=== PATIENT | female | born 1970 | race Caucasian/White ===

== ENCOUNTER → 2024-06-07 14:23 | Outpatient (REF) | payer BC, SELFPAY | LOC: WDC 14:23 | PROVIDERS: ATTENDING PHYSICIAN Family Medicine | DX: Z12.31 Encounter for screening mammogram for malignant neoplasm of breast (principal) | CPT/HCPCS: 77063; 77067 ==

== ENCOUNTER → 2024-06-29 06:30 | Outpatient (REF) | payer BC, SELFPAY ==
[2024-06-29 08:53] LABS: % Basophils 1.5 % (0-2); % Eosinophils 6.3 % (0-6); % Immature Granulocytes 0.2 % (0-0.5); % Monocytes 7.4 % (1.7-9.3); % Neutrophils 54.6 % (42.2-75.2); Absolute Basophils 0.1 10^3/uL (0-0.2); Absolute Eosinophils 0.3 10^3/uL (0-0.7); Absolute Lymphocytes 1.6 10^3/uL (1.2-3.4); Absolute Monocytes 0.4 10^3/uL (0.1-0.6); Absolute Neutrophils 2.9 10^3/uL (1.4-6.5); Hematocrit 40.4 % (37.0-47.0); Hemoglobin 13.8 g/dL (12.0-16.0); Mean Corp Hgb Conc. 34.2 g/dL (33.0-37.0); Mean Corpuscular Hgb 29.4 pg (27.0-31.0); Nucleated Red Blood Cells % 0 %; Platelet Count 311 10^3/uL (130-400); Red Cell Dist. Width 12.2 % (11.5-14.5); White Blood Cell Count 5.3 10^3/uL (4.8-10.8)
[2024-06-29 08:59] LABS: Urine Albumin Negative (Neg - Trace); Urine Bilirubin Negative (Negative); Urine Character Clear (Clear); Urine Color Yellow; Urine Glucose Negative (Negative); Urine Ketone Negative (Negative); Urine Leukocyte Negative (Negative); Urine Nitrite Negative (Negative); Urine Occult Blood Negative (Negative); Urine Urobilinogen Negative (Neg - 1+)
[2024-06-29 09:18] LABS: ALT (SGPT) 28 U/L (0-35); AST (SGOT) 35 U/L (14-36); Albumin 4.6 g/dl (3.5-5.0); Alkaline Phosphatase 62 U/L (38-126); Blood Urea Nitrogen 16 mg/dl (7-17); Calcium 9.8 mg/dl (8.4-10.2); Carbon Dioxide 25 mmol/L (22-30); Chloride 102 mmol/L (98-107); Glucose 105 mg/dl (70-99); HDL Cholesterol 89 mg/dl; LDL Cholesterol, Calculated 106 mg/dl; Potassium 4.7 mmol/L (3.5-5.1); Sodium 140 mmol/L (135-145); Total Bilirubin 1.6 mg/dl (0.2-1.3); Total Cholesterol 209 mg/dl (50-199); Total Protein 7.2 g/dl (6.3-8.2); Triglyceride 70 mg/dl (10-149); Very Low Density Lipoprotein 14 mg/dl (0-30); eGFR > 60.00
[2024-06-29 09:34] LABS: Free T4 1.16 ng/dl (0.78-2.19); Glycohemoglobin (HgbA1c) 5.4 % (4.0-5.6)
[2024-06-29 09:52] LABS: Free T3 3.39 pg/ml (2.77-5.27)
== END ==
LOC: SDSPAT 06:30
PROVIDERS: ATTENDING PHYSICIAN Family Medicine
DX: Z00.00 Encounter for general adult medical examination without abnormal findings (principal); E03.9 Hypothyroidism, unspecified
CPT/HCPCS: 80053; 80061; 81003; 83036; 84439; 84443; 84481; 85025

== ENCOUNTER → 2024-11-08 06:40 | Outpatient (REF) | payer BC, SELFPAY ==
[2024-11-08 11:01] LABS: Urine Albumin Negative (Neg - Trace); Urine Bilirubin Negative (Negative); Urine Character Clear (Clear); Urine Color Yellow; Urine Glucose Negative (Negative); Urine Ketone Negative (Negative); Urine Leukocyte 1+ (Negative); Urine Nitrite Negative (Negative); Urine Occult Blood Negative (Negative); Urine Urobilinogen Negative (Neg - 1+)
[2024-11-08 11:23] LABS: Urine Bacteria Many (Negative); Urine Red Blood Cell 0-2 /HPF (0-2); Urine Squamous Cell >30 /LPF (Few); Urine White Cell 0-2 /HPF (0-5)
== END ==
LOC: SDSPAT 06:40
PROVIDERS: ATTENDING PHYSICIAN Physician Assistant
DX: R30.0 Dysuria (principal)
CPT/HCPCS: 36415; 81003; 81015; 87086

== ENCOUNTER → 2024-11-15 14:54 | Outpatient (REF) | payer BC, SELFPAY | LOC: RAD 14:54 | PROVIDERS: ATTENDING PHYSICIAN Nurse Practitioner Family | DX: R10.2 Pelvic and perineal pain (principal) | CPT/HCPCS: 74176 ==

== ENCOUNTER 2025-02-20 15:41 | Emergency (ER) | payer BC, SELFPAY ==
[2025-02-20 15:45] VITALS: BP 145/99
--- NOTE | 2025-02-20 17:26 | ED.GENMED ---
Addendum entered and electronically signed by Pedro Zamorano MD 02/20/25 20:14:
Note was erroneously signed prior to completion
MRI reviewed which showed L5-S1 disc extrusion with nerve root impingement in the lateral recess but no signs to suggest cauda equina or cord injury. This finding is consistent with her clinical exam and symptoms. Will plan to start on course of
steroids, will plan for discharge and patient can follow-up as an outpatient with orthopedist. Patient comfortable with this plan. All questions answered.
Original Note:
History of Present Illness
General
Chief Complaint: Numbness
Source: patient
Exam Limitations: none
Time Seen by Provider: 02/20/25 16:44
Nursing documentation reviewed up to this point in time: agreed with
History of Present Illness
History of Present Illness:
55-year-old female with history as noted presents for evaluation of right leg weakness and numbness, new fecal incontinence. Patient reports that she had a fall with back injury in September. She had subsequent imaging that showed some bulging
disks in the lumbar region. She says that about 3 weeks ago she aggravated her back pain while she was lifting a grandchild and since then has been having pain across her lower back as well as severe radicular symptoms. She says she has shooting
pains down the right buttock and all the way down the right leg. She describes shooting/stabbing pains in the right leg. She has associated numbness in the leg particularly in the calf and heel. She also reports weakness particular on
dorsiflexion of the foot. She denies any symptoms in the left lower extremity. She has not had any incontinence of urine but says that yesterday she had an episode of fecal incontinence. She does describe some saddle anesthesia/difficulty with
sensation of defecation. She discussed the symptoms with her primary care doctor who sent her in to be evaluated for possible cauda equina syndrome.
Past History
Past History
ED Past Medical History: Other (Irritable bowel syndrome)
ED Past Surgical History: Cholecystectomy, Gynecological and Other (Mandible surgery)
Social History
Tobacco: Former smoker
Review of Systems
Review of Systems
All Other Systems: ROS reviewed and negative except as documented in HPI and ROS
Constitutional: Denies fever
Respiratory: Denies trouble breathing
Cardiac: Denies chest pain
ABD/GI: Denies abdominal pain
: Denies incontinence (Denies urinary incontinence) or difficulty voiding
Musculoskeletal: Reports back pain
Neurological: Denies headache
Phy Exam
Physical Exam
Physical Exam:
General: Awake, alert; no acute distress
Head: Normocephalic, atraumatic
Eyes: Conjunctiva normal
Throat: Airway intact, handling secretions
Neck: Trachea midline, supple without meningismus
Lungs: Breathing comfortably no distress
Heart: Regular rate
Back: No midline tenderness of thoracic or lumbar region and no point tenderness paraspinally
Rectal: Good rectal tone; she does report some diminished sensation in the perianal region
Neuro: Cranial nerves grossly intact, speech fluid; subjective diminished sensation posterior right calf as well as the right heel; some very slight weakness on dorsiflexion of the right foot when compared to the left but good proximal strength and
good strength on extension of the knee
Skin: no rash
Extremities: Warm and well-perfused with good pulses
Scores
Heart Failure Risk
Heart Failure Risk Score: Not Applicable
Heart Score for Chest Pain Patients
STEMI patient?: Not applicable
Withdrawal Assessment of Alcohol
Withdrawal Assessment Completed?: Not applicable
Course
Orders/Labs/Results
Orders:
Orders
02/20/25 17:02
Bladder Scan- Treatment ONCE
02/20/25 17:24
MR Lumbar Without Contrast Urgent
Comment:
Reason For Exam: back pain, right leg weakness/numb, incontinence
Recent pill cam endoscopy?: No
Vital Signs
Initial and Last Documented VS:
Initial Vital Signs
Temp Pulse Resp BP Pulse Ox
36.7 C 63 16 145/99 100
02/20/25 15:45 02/20/25 15:45 02/20/25 15:45 02/20/25 15:45 02/20/25 15:45
Last Documented Vital Signs
Temp Pulse Resp BP Pulse Ox
36.7 C 68 20 145/99 100
02/20/25 15:45 02/20/25 17:17 02/20/25 17:17 02/20/25 15:45 02/20/25 17:17
MDM/Problems Addressed
Differential Diagnosis Includes:
Disc herniation/bulging disc, DJD--likely sciatica but must rule out cauda equina syndrome
MDM/Problems Addressed:
55-year-old female presents for evaluation of low back pain with radicular symptoms; she is also reporting some saddle anesthesia and new fecal incontinence. Vitals and exam as above�notably objectively has good rectal tone. She had no urinary
retention on bladder scan. I suspect this is likely low back pain with sciatica likely from bulging disc that was previously seen on imaging however given constellation of symptoms I do think she must be evaluated for cauda equina syndrome.
Discussed with radiologist we will proceed with MRI of the lumbar region. Reassess after the above.
*Radiology
Radiology exam reviewed: radiology read reviewed
*Pulse Oximetry
Patient hypoxic: no
*Critical Care Note
Total Time (30-74mins, 75-104mins- exclusive of procedures): Not Applicable
Data Reviewed
Source: patient, records and physician (Physician called ahead to refer patient to the ER)
Patient Management
Discussion with other providers: Radiologist (Discussed with radiologist)
ED Attending Note
-
Portions of this chart may have been created with voice recognition software.� Occasional wrong word or��sound alike� substitutions may have occurred due to the inherent limitations of voice recognition software.
Discharge Plan
Departure
Prescriptions:
No Action
levothyroxine 88 MCG tablet
88 mcg PO DAILY
esomeprazole magnesium [Nexium] 40 MG capsule,delayed release(DR/EC)
40 mg PO DAILY
loratadine [Allergy Relief (loratadine)] 10 MG tablet
20 mg PO DAILY
cholecalciferol (vitamin D3) [Vitamin D3] 400 UNIT capsule
400 unit PO DAILY
sucralfate [Carafate] 1 GM tablet
1 gm PO BID Qty: 20 0RF
Referrals:
Isabela Laura CRNP [Family Provider] -
Interventions
Interventions:
*Risk Screen - Suicide Last Done: 02/20/25 17:17
*General Assessment Last Done: 02/20/25 17:17
*Neglect/Abuse Screening Last Done: 02/20/25 17:17
*ED- Fall Risk Assessment Last Done: 02/20/25 17:17
ED- Neurological Assessment Last Done: 02/20/25 17:17
Discharge Date and Time
Print Language: CROATIAN
[2025-02-20 17:38] VITALS: BP 116/85
[2025-02-20 18:00] VITALS: BP 108/91
[2025-02-20 18:10] VITALS: BP 108/91
[2025-02-20 19:47] VITALS: BP 137/121
[2025-02-20 20:00] VITALS: BP 119/79
== END 2025-02-20 20:30 | disposition home or self-care (01) ==
LOC: EMR 15:41
PROVIDERS: EMERGENCY PHYSICIAN Emergency Medicine; FAMILY PHYSICIAN Nurse Practitioner Family
DX: M51.27 Other intervertebral disc displacement, lumbosacral region (principal); M54.17 Radiculopathy, lumbosacral region; Z90.49 Acquired absence of other specified parts of digestive tract; Z87.891 Personal history of nicotine dependence
CPT/HCPCS: 99284; 72148

== ENCOUNTER 2025-02-21 10:13 | Outpatient (RCR) | payer BC, SELFPAY | END 2025-02-21 23:59 | disposition home or self-care (01) | LOC: RPT 10:13 | PROVIDERS: ATTENDING PHYSICIAN Nurse Practitioner Family | DX: M54.41 Lumbago with sciatica, right side (principal); Z73.6 Limitation of activities due to disability; M62.81 Muscle weakness (generalized); R20.0 Anesthesia of skin; M79.604 Pain in right leg; M51.27 Other intervertebral disc displacement, lumbosacral region; X58.XXXD Exposure to other specified factors, subsequent encounter | CPT/HCPCS: 97110; 97140; 97162 ==

== ENCOUNTER → 2025-03-08 12:08 | Outpatient (REF) | payer BC, SELFPAY | LOC: MRI 3T 12:08 | PROVIDERS: ATTENDING PHYSICIAN Orthopaedic Surgery Orthopaedic Surgery of the Spine; FAMILY PHYSICIAN Nurse Practitioner Family | DX: M48.02 Spinal stenosis, cervical region (principal); M48.04 Spinal stenosis, thoracic region | CPT/HCPCS: 72141; 72146 ==

== ENCOUNTER 2025-03-12 06:10 | Day surgery (SDC) | payer BC, SELFPAY ==
[2025-03-08 09:01] LABS: Hematocrit 40.3 % (37.0-47.0); Hemoglobin 13.5 g/dL (12.0-16.0); Mean Corp Hgb Conc. 33.5 g/dL (33.0-37.0); Mean Corpuscular Hgb 29.5 pg (27.0-31.0); Mean Platelet Volume 10.7 fL (7.4-10.4); Platelet Count 317 10^3/uL (130-400); Red Blood Cell Count 4.58 10^6/uL (4.20-5.40); Red Cell Dist. Width 12.5 % (11.5-14.5); White Blood Cell Count 10.2 10^3/uL (4.8-10.8)
[2025-03-08 09:24] LABS: ALT (SGPT) 23 U/L (0-35); AST (SGOT) 25 U/L (14-36); Albumin 4.2 g/dl (3.5-5.0); Alkaline Phosphatase 45 U/L (38-126); Blood Urea Nitrogen 16 mg/dl (7-17); Calcium 8.8 mg/dl (8.4-10.2); Carbon Dioxide 32 mmol/L (22-30); Chloride 105 mmol/L (98-107); Glucose 93 mg/dl (70-99); Potassium 3.5 mmol/L (3.5-5.1); Sodium 141 mmol/L (135-145); Total Bilirubin 0.8 mg/dl (0.2-1.3); Total Protein 6.4 g/dl (6.3-8.2); eGFR > 60.00
[2025-03-08 12:46] VITALS: BMI 23.5
[2025-03-12] VITALS (9 sets, daily range): BP systolic 129–135; BP diastolic 73–90; BMI 23.5
[2025-03-12] MEDS: TYLENOL 1000 MG PO (11:46)
[2025-03-12] MEDS: CELEBREX 200 MG PO (11:46)
[2025-03-12] MEDS: METHOCARBAMOL 1500 MG PO (11:47)
[2025-03-12] MEDS: NORMOSOL-R/PLASMALYTE-A 1000 IV (12:03)
[2025-03-12] MEDS: VANCOCIN 200 IV (12:16)
[2025-03-12] MEDS: ULTRAM 50 MG PO (15:26)
== END 2025-03-12 15:55 | disposition home or self-care (01) ==
LOC: SDS 06:10
PROVIDERS: ATTENDING PHYSICIAN Orthopaedic Surgery Orthopaedic Surgery of the Spine; FAMILY PHYSICIAN Nurse Practitioner Family
DX: M51.27 Other intervertebral disc displacement, lumbosacral region (principal); M51.379 Other intervertebral disc degeneration, lumbosacral region without mention of lumbar back pain or lower extremity pain
CPT/HCPCS: 63030; 72020; 80053; 85027; 87070; 93005

== ENCOUNTER → 2025-05-08 14:39 | Outpatient (REF) | payer BC, SELFPAY | LOC: CPAP 14:39 | PROVIDERS: ATTENDING PHYSICIAN Obstetrics & Gynecology Gynecology | DX: Z01.419 Encounter for gynecological examination (general) (routine) without abnormal findings (principal) | CPT/HCPCS: 87624 ==

== ENCOUNTER → 2025-06-11 14:21 | Outpatient (REF) | payer BC, SELFPAY | LOC: WDC 14:21 | PROVIDERS: ATTENDING PHYSICIAN Nurse Practitioner Family | DX: Z12.31 Encounter for screening mammogram for malignant neoplasm of breast (principal) | CPT/HCPCS: 77063; 77067 ==